=== PATIENT | female | born 1960 ===

== ENCOUNTER 2016-08-05 13:23 | Emergency (ER) | payer MEDICAID ==
[2016-08-05 13:24] VITALS: BMI 26.9
[2016-08-05 13:52] VITALS: BP 135/88; PULSE 84; RESP 16; TEMP 98.2; O2SAT 97
--- NOTE | 2016-08-05 13:57 | ED PDOC ---
Arrival/HPI - General Chief Complaint: Back Pain Time Seen by Provider: 08/05/16 13:47 Historian: Patient, Family (Daughter) - History of Present Illness Time/Duration: Other (Yesterday) Symptom Onset: Gradual Symptom Course: Worsening Quality: Aching Severity Level: Mild Associated Symptoms (Text): 08/05/16 13:54 Patient reports that yesterday she got a mammogram and while holding on she felt a pull in her right chest and right shoulder right back and right neck. The pain became worse overnight with certain movements. No dyspnea. No cough congestion or URI. No fever or chills. She took some Advil which did help. Past Medical History - Infectious Disease Hx of Infectious Diseases: None - Tetanus Immunization Tetanus Immunization: Unknown - Reproductive Menopause: Yes - Past Medical History Past Medical History: No Previous - Cardiac Hx Cardiac Disorders: No - Pulmonary Hx Respiratory Disorders: No - Neurological Hx Neurological Disorder: No - HEENT Hx HEENT Disorder: No Hx Blind: No - Renal Hx Renal Disorder: No - Endocrine/Metabolic Hx Endocrine Disorders: No - Hematological/Oncological Hx Blood Disorders: No Hx AIDS: No - Integumentary Hx Dermatological Disorder: No - Musculoskeletal/Rheumatological Hx Musculoskeletal Disorders: No - Gastrointestinal Hx Gastrointestinal Disorders: Yes Hx Gastroesophageal Reflux: Yes - Genitourinary/Gynecological Hx Genitourinary Disorders: No - Psychiatric Hx Psychophysiologic Disorder: No Hx Depression: No Hx Emotional Abuse: No Hx Physical Abuse: No Hx Substance Use: No - Past Surgical History Past Surgical History: No Previous - Surgical History Hx Cholecystectomy: Yes - Anesthesia Hx Anesthesia: Yes Hx Anesthesia Reactions: No Hx Malignant Hyperthermia: No - Suicidal Assessment Feels Threatened In Home Enviroment: No Family/Social History - Physician Review Nursing Documentation Reviewed: Yes Family/Social History: Unknown Family HX Smoking Status: Heavy Smoker > 10 Cigarettes Daily Hx Alcohol Use: Yes Frequency of alcohol use: Socially Hx Substance Use: No Hx Substance Use Treatment: No Allergies/Home Meds Allergies/Adverse Reactions: Allergies No Known Allergies Allergy (Verified 09/21/15 10:14) Home Medications: Home Meds Medication Instructions Recorded Confirmed Esomeprazole Sodium [Nexium] 40 mg PO DAILY 09/21/15 09/21/15 Review of Systems - Physician Review All systems were reviewed & negative as marked: Yes Physical Exam Vital Signs Temp Pulse Resp BP Pulse Ox 08/05/16 13:46 98.2 F 84 16 135/88 97 Temperature: Afebrile Blood Pressure: Normal Pulse: Regular Respiratory Rate: Normal Appearance: Positive for: Well-Appearing, Non-Toxic, Uncomfortable Pain Distress: Mild Mental Status: Positive for: Alert and Oriented X 3 - Systems Exam Head: Present: Atraumatic, Normocephalic Mouth: Present: Moist Mucous Membranes Pharnyx: No: ERYTHEMA, EXUDATE, TONSILS ENLARGED Neck: Present: Normal Range of Motion. No: Meningeal Signs, MIDLINE TENDERNESS , Paraspinal Tenderness Respiratory/Chest: Present: Clear to Auscultation, Good Air Exchange. No: Respiratory Distress, Accessory Muscle Use Cardiovascular: Present: Regular Rate and Rhythm, Normal S1, S2. No: Murmurs Back: Present: Normal Inspection. No: CVA Tenderness, Midline Tenderness, Paraspinal Tenderness Upper Extremity: Present: Normal Inspection, Normal ROM, NORMAL PULSES, Tenderness, Neurovascularly Intact, Other (Right posterior lateral shoulder tenderness with no swelling and no skin changes). No: Cyanosis, Edema, Swelling , Erythema, Deformity Lower Extremity: Present: Normal Inspection. No: Edema Neurological: Present: GCS=15, CN II-XII Intact, Speech Normal, Motor Func Grossly Intact Skin: Present: Warm, Dry, Normal Color. No: Rashes Disposition/Present on Arrival - Present on Arrival Any Indicators Present on Arrival: No History of DVT/PE: No History of Uncontrolled Diabetes: No Urinary Catheter: No History of Decub. Ulcer: No History Surgical Site Infection Following: None - Disposition Have Diagnosis and Disposition been Completed?: Yes Diagnosis: Back strain Disposition: HOME/ ROUTINE Disposition Time: 13:56 Patient Plan: Discharge Condition: GOOD Discharge Instructions (ExitCare): Muscle Strain (ED) Additional Instructions: Rest and ice.. Follow-up with PMD. Follow up in ER as needed. Prescriptions: Cyclobenzaprine [Flexeril] 5 mg PO Q8 #15 tab Cyclobenzaprine [Flexeril] 5 mg PO Q8 #15 tab Naproxen [Naprosyn] 500 mg PO BID #14 tab Naproxen [Naprosyn] 500 mg PO BID #14 tab Referrals: Xin Barrett MD [Primary Care Provider] - Follow up with primary
== END 2016-08-05 14:29 | disposition home or self-care (01) ==
LOC: ED 13:23
DX: S29.012A Strain of muscle and tendon of back wall of thorax, initial encounter (principal); X50.0XXA Overexertion from strenuous movement or load, initial encounter; Y93.89 Activity, other specified; Y92.89 Other specified places as the place of occurrence of the external cause

== ENCOUNTER 2016-11-24 14:23 | Emergency (ER) | payer MEDICAID ==
[2016-11-24 14:23] VITALS: BMI 26.9
[2016-11-24 14:45] VITALS: RESP 18; TEMP 98.3; O2SAT 98
--- NOTE | 2016-11-24 15:22 | ED PDOC ---
Arrival/HPI - General Historian: Patient - History of Present Illness Time/Duration: Other (2 days headache, facial numbness 1day; chest pain, ) Symptom Onset: Gradual Symptom Course: Worsening Quality: Pressure, Tightness, Other (pulling) Severity Level: 4 <Amy Edwards - Last Filed: 11/24/16 23:32> <MaddyJude - Last Filed: 11/29/16 12:00> - General Chief Complaint: Pain, Chronic Time Seen by Provider: 11/24/16 14:58 - History of Present Illness Narrative History of Present Illness (Text): 11/24/16 15:22 56yr old female with hx of HTN and borderline DM presents today with 2 day history of weakness, left sided facial numbness, headache and 1 day history of left sided chest pain which she describes as a pulling sensation across the left anterior chest. pt denies abdominal pain. no n/v/d/c. no fever/chills. no urinary symptoms. pt admits to drinking alcohol daily (wine with dinner). pt states she smokes daily. no other complaints. PMD: dr. Siegel. (Amy Edwards) Past Medical History - Provider Review Nursing Documentation Reviewed: Yes - Travel History Have you recently traveled outside [place] w/in the past 3 mons?: No - Infectious Disease Hx of Infectious Diseases: None - Tetanus Immunization Tetanus Immunization: Unknown - Past Medical History Past Medical History: No Previous - Cardiac Hx Hypertension: Yes - Pulmonary Hx Respiratory Disorders: No - Neurological Hx Neurological Disorder: No - HEENT Hx HEENT Disorder: No Hx Blind: No - Renal Hx Renal Disorder: No - Endocrine/Metabolic Hx Diabetes Mellitus Type 2: Yes (non-compliant) - Hematological/Oncological Hx Blood Disorders: No Hx AIDS: No - Integumentary Hx Dermatological Disorder: No - Musculoskeletal/Rheumatological Hx Musculoskeletal Disorders: No - Gastrointestinal Hx Gastrointestinal Disorders: Yes Hx Gastroesophageal Reflux: Yes - Genitourinary/Gynecological Hx Genitourinary Disorders: No - Psychiatric Hx Psychophysiologic Disorder: No Hx Depression: No Hx Emotional Abuse: No Hx Physical Abuse: No Hx Substance Use: No - Past Surgical History Past Surgical History: No Previous - Surgical History Hx Cholecystectomy: Yes - Anesthesia Hx Anesthesia: Yes Hx Anesthesia Reactions: No Hx Malignant Hyperthermia: No - Suicidal Assessment Feels Threatened In Home Enviroment: No <Amy Edwards - Last Filed: 11/24/16 23:32> Family/Social History - Physician Review Nursing Documentation Reviewed: Yes Family/Social History: Unknown Family HX Smoking Status: Heavy Smoker > 10 Cigarettes Daily Hx Alcohol Use: Yes Hx Substance Use: No Hx Substance Use Treatment: No <Amy Edwards - Last Filed: 11/24/16 23:32> Allergies/Home Meds <Amy Edwards - Last Filed: 11/24/16 23:32> <Jude Castañeda - Last Filed: 11/29/16 12:00> Allergies/Adverse Reactions: Allergies No Known Allergies Allergy (Verified 09/21/15 10:14) Home Medications: Home Meds Medication Instructions Recorded Confirmed Esomeprazole Sodium [Nexium] 40 mg PO DAILY 09/21/15 09/21/15 Review of Systems - Review of Systems Constitutional: Fatigue. absent: Fevers Respiratory: absent: SOB, Cough Cardiovascular: Chest Pain, Palpitations. absent: Syncope Gastrointestinal: absent: Abdominal Pain, Nausea, Vomiting Genitourinary Female: absent: Dysuria, Frequency, Hematuria Musculoskeletal: absent: Arthralgias, Back Pain, Neck Pain Skin: absent: Rash, Pruritis Neurological: Headache, Dizziness, Other (left sided facial numbness). absent: Focal Weakness, Facial Droop Psychiatric: absent: Anxiety, Depression, Suicidal Ideation <Amy Edwards - Last Filed: 11/24/16 23:32> Physical Exam Vital Signs Reviewed: Yes Temperature: Afebrile Blood Pressure: Normal Pulse: Regular Respiratory Rate: Normal Appearance: Positive for: Well-Appearing, Non-Toxic, Comfortable Pain Distress: None Mental Status: Positive for: Alert and Oriented X 3 - Systems Exam Head: Present: Atraumatic Pupils: Present: PERRL Extroacular Muscles: Present: EOMI Conjunctiva: Present: Normal Mouth: Present: Moist Mucous Membranes, Normal Lips, Normal Tounge, Normal Teeth. No: Drooling, Trismus Pharnyx: Present: Normal Neck: Present: Normal Range of Motion, Trachea Midline. No: MIDLINE TENDERNESS , Paraspinal Tenderness Respiratory/Chest: Present: Clear to Auscultation, Good Air Exchange. No: Respiratory Distress, Accessory Muscle Use Cardiovascular: Present: Regular Rate and Rhythm. No: Tachycardic Abdomen: No: Tenderness, Distention, Rebound, Guarding Back: Present: Normal Inspection Upper Extremity: Present: Normal ROM Lower Extremity: Present: Normal ROM Neurological: Present: GCS=15, Speech Normal, Motor Func Grossly Intact, Gait Normal. No: Normal Sensory Function (Decreased sensation left side of face) Skin: Present: Warm, Dry, Normal Color. No: Rashes Psychiatric: Present: Alert, Oriented x 3 <Amy Edwards T - Last Filed: 11/24/16 23:32> Medical Decision Making <Amy Edwards - Last Filed: 11/24/16 23:32> <Jude Castañeda - Last Filed: 11/29/16 12:00> ED Course and Treatment: 11/24/16 15:28 pt with left sided facial numbness x 2 days, cp x 1 day. cbc; wnl cmp; wnl trop: wnl ekg; normal sinus rhythm at 89 bpm normal axis normal intervals no ST elevations cxr:wnl CT; FINDINGS: HEMORRHAGE: No intracranial hemorrhage. BRAIN: No mass effect or edema. Chronic microvascular changes are seen in the periventricular white matter VENTRICLES: Unremarkable. No hydrocephalus. CALVARIUM: Unremarkable. PARANASAL SINUSES: Unremarkable as visualized. No significant inflammatory changes. MASTOID AIR CELLS: Unremarkable as visualized. No inflammatory changes. OTHER FINDINGS: None. IMPRESSION: No acute intracranial findings asa po pt reassessment; pt non toxic well appearing; resting comfortably in er. discussed all results with patient in depth. PT with htn, borderline dm, +smoker with facial numbness and chest pain. will admit to tele for CP and facial numbness. pt refusing to stay in the hospital. pt will sign ama. Patient has been advised to not leave the emergency room but has decided to go AGAINST MEDICAL ADVICE. The patient possesses capacity to make decisions and has voiced understanding to all my warnings of potential worsening of the condition for which medical care was sought. I have discussed all known and potential risks and consequences to the patient leaving AGAINST MEDICAL ADVICE. Patient is leaving against medical advise. AMA form signed. witness by ANNA Zhang. pt was advised of risk of stroke,ME, , disability or worsening of symptoms. pt understands that she can return at any point in time to continue her care. impression; chest pain, facial numbness AMA Return if you wish to continue your care. follow up with the primary care physician SOON POSSIBLE. RETURN IMMEDIATELY IF SYMPTOMS WORSEN,PERSIST OR IF NEW SYMPTOMS DEVELOP. ( Amy Edwards) - Lab Interpretations Lab Results: 11/24/16 15:30 11/24/16 15:30 Lab Results 11/24/16 15:50: Urine Color Yellow, Urine Appearance Clear, Urine pH 6.5, Ur Specific Morris <= 1.005, Urine Protein Negative, Urine Glucose (UA) Negative, Urine Ketones Negative, Urine Blood Negative, Urine Nitrate Negative, Urine Bilirubin Negative, Urine Urobilinogen 0.2, Ur Leukocyte Esterase Negative 11/24/16 15:30: WBC 6.8, RBC 4.63, Hgb 15.4, Hct 44.1, MCV 95.2, MCH 33.3, MCHC 34.9, RDW 12.3, Plt Count 193, MPV 10.8, Gran % 65.1, Lymph % (Auto) 26.6, [place] % (Auto) 6.4 H, Eos % (Auto) 1.6, Baso % (Auto) 0.3, Gran # 4.41, Lymph # 1.8, [place] # 0.4, Eos # 0.1, Baso # 0.02 11/24/16 15:30: Salicylates < 1 L 11/24/16 15:30: Sodium 142, Potassium 4.0, Chloride 103, Carbon Dioxide 28, Anion Gap 15, BUN 14, Creatinine 0.6, Est GFR ( Amer) > 60, Est GFR (Non- Af Amer) > 60, Random Glucose 127 H, Calcium 9.7, Total Bilirubin 0.6, AST 38, ALT 39, Alkaline Phosphatase 86, Lactate Dehydrogenase 611, Total Creatine Kinase 91, Troponin I < 0.01, Total Protein 7.8, Albumin 4.6, Globulin 3.2, Albumin/Globulin Ratio 1.4, Lipase 71 - RAD Interpretation Radiology Orders: 11/24/16 15:04 HEAD W/O CONTRAST [CT] Stat CHEST PORTABLE [RAD] Stat - Medication Orders Current Medication Orders: Discontinued Medications Aspirin (Aspirin) 325 mg PO STAT STA Stop: 11/24/16 17:43 Last Admin: 11/24/16 17:54 Dose: 325 mg - PA / [employer] / Resident Statement MD/DO has reviewed & agrees with the documentation as recorded. <Jude Castañeda - Last Filed: 11/29/16 12:00> Disposition/Present on Arrival - Present on Arrival Any Indicators Present on Arrival: No History of DVT/PE: No History of Uncontrolled Diabetes: No Urinary Catheter: No History of Decub. Ulcer: No History Surgical Site Infection Following: None - Disposition Have Diagnosis and Disposition been Completed?: Yes Disposition Time: 17:43 Patient Plan: Other (AMA) <Amy Edwards - Last Filed: 11/24/16 23:32> <Jude Castañeda - Last Filed: 11/29/16 12:00> - Disposition Diagnosis: Chest pain, Facial numbness Disposition: AGAINST MEDICAL ADVICE Condition: FAIR Discharge Instructions (ExitCare): Chest Pain (ED) Additional Instructions: Return if you wish to continue your care. follow up with the primary care physician SOON POSSIBLE. RETURN IMMEDIATELY IF SYMPTOMS WORSEN,PERSIST OR IF NEW SYMPTOMS DEVELOP. Referrals: Rosemarie Siegel DO [Doctor Osteopathy] - Follow up with primary Domingo Wallace MD [Staff Provider] - Follow up with primary Forms: [employer] ([employer])
[2016-11-24 15:45] LABS: BASO # 0.02 K/mm3 (0.0-2.0); BASO % 0.3 % (0.0-3.0); EOS # 0.1 (0.0-0.7); EOS % 1.6 % (1.5-5.0); GRAN # 4.41 (1.4-6.5); GRAN % 65.1 % (50.0-68.0); HEMOGLOBIN 15.4 gm/dL (12.0-16.0); LYMPH # 1.8 (1.2-3.4); LYMPH % 26.6 % (22.0-35.0); MEAN CELL VOLUME 95.2 fL (80.0-105.0); MEAN CORPUSCULAR HEMOGLOBIN 33.3 pg (25.0-35.0); MEAN CORPUSCULAR HGB CONC 34.9 g/dl (31.0-37.0); MEAN PLATELET VOLUME 10.8 fl (7.0-11.0); MONO # 0.4 (0.1-0.6); MONO % 6.4 % (1.0-6.0); PLATELET COUNT 193 10^3/uL (120.0-450.0); RBC 4.63 10^6/uL (3.5-6.1); RED CELL DISTRIBUTION WIDTH 12.3 % (11.5-14.5); WHITE BLOOD COUNT 6.8 10^3/ul (4.5-11.0)
--- NOTE | 2016-11-24 15:52 | RAD ---
HISTORY: cp/weakness/headache/facial numbness COMPARISON: 08/18/2015 FINDINGS: LUNGS: No active pulmonary disease. PLEURA: No significant pleural effusion identified, no pneumothorax apparent. CARDIOVASCULAR: Normal. OSSEOUS STRUCTURES: No significant abnormalities. VISUALIZED UPPER ABDOMEN: Normal. OTHER FINDINGS: None. IMPRESSION: No active disease.
[2016-11-24 15:54] LABS: ALB/GLOB RATIO 1.4 (1.1-1.8); ALBUMIN 4.6 g/dL (3.0-4.8); ALT/SGPT 39 U/L (7-56); AST/SGOT 38 U/L (15-39); BLOOD UREA NITROGEN 14 mg/dL (7-21); CALCIUM 9.7 mg/dL (8.4-10.5); GFR AFRICAN-AMERICAN > 60; GFR NON-AFRICAN AMERICAN > 60; LIPASE 71 U/L (23-300)
--- NOTE | 2016-11-24 15:57 | CT ---
PROCEDURE: CT HEAD WITHOUT CONTRAST. HISTORY: headache/left sided facial numbness COMPARISON: None available. TECHNIQUE: Axial computed tomography images were obtained through the head/brain without intravenous contrast. Radiation dose: Total exam DLP = 689 mGy-cm. This CT exam was performed using one or more of the following dose reduction techniques: Automated exposure control, adjustment of the mA and/or kV according to patient size, and/or use of iterative reconstruction technique. FINDINGS: HEMORRHAGE: No intracranial hemorrhage. BRAIN: No mass effect or edema. Chronic microvascular changes are seen in the periventricular white matter VENTRICLES: Unremarkable. No hydrocephalus. CALVARIUM: Unremarkable. PARANASAL SINUSES: Unremarkable as visualized. No significant inflammatory changes. MASTOID AIR CELLS: Unremarkable as visualized. No inflammatory changes. OTHER FINDINGS: None. IMPRESSION: No acute intracranial findings
[2016-11-24 16:05] LABS: TROPONIN I < 0.01 ng/mL
[2016-11-24 16:27] LABS: PH,URINE 6.5 (4.7-8.0); URINE BILIRUBIN NEGATIVE (NEGATIVE); URINE BLOOD NEGATIVE (NEGATIVE); URINE GLUCOSE (UA) NEGATIVE (NEGATIVE); URINE LEUKOCYTE ESTERASE NEGATIVE Leu/uL (NEGATIVE); URINE NITRATE NEGATIVE (NEGATIVE); URINE PROTEIN NEGATIVE mg/dL (<30 mg/dL); URINE UROBILINOGEN 0.2 E.U./dL (<1 E.U./dL)
[2016-11-24 16:28] LABS: URINE APPEARANCE CLEAR (CLEAR); URINE COLOR YELLOW (YELLOW)
[2016-11-24 17:27] VITALS: BP 118/75; PULSE 74
--- NOTE | 2016-11-24 20:42 | CARD ---
APPROVED REPORT EKG Measurement Heart [id number] <Conclusion> Normal sinus rhythm Low voltage QRS Borderline ECG
== END 2016-11-24 17:56 | disposition left against medical advice (07) ==
LOC: ED 14:23
DX: R07.9 Chest pain, unspecified (principal); R20.9 Unspecified disturbances of skin sensation; I10 Essential (primary) hypertension; F17.220 Nicotine dependence, chewing tobacco, uncomplicated